=== PATIENT | male | born 1985 | race African-American/Black ===

== ENCOUNTER 2022-09-24 10:24 | Emergency (ER) | payer BC, SELFPAY ==
[2022-09-24 10:40] VITALS: BP 152/84; PULSE 90; RESP 15; TEMP 36.2; O2SAT 96; BMI 31.6
--- NOTE | 2022-09-24 14:53 | ED_ITS ---
HPI - General Adult General Chief complaint: General Medical Stated complaint: semt from urgent care Time Seen by Provider: 09/24/22 14:44 Source: patient, RN notes reviewed and old records reviewed Mode of arrival: ambulatory History of Present Illness HPI narrative: 37-year-old male with no significant past medical history presenting to the ED sent in by urgent care for diagnosis of peritonsillar abscess. Patient reports sore throat x3 days with in full/difficulty swallowing. Reports mild SOB secondary to posterior swelling noted today when lying flat. Also reports low- grade fever 99. denies SOB, CP, ear pain Onset (ago): day(s) Related Data Previous Rx's Medication Instructions Recorded acetaminophen 325 mg capsule 650 mg PO Q6H PRN fever or pain 09/24/22 (Tylenol) #20 caps amoxicillin 875 mg-potassium 1 tab PO BID 7 days #14 tabs 09/24/22 clavulanate 125 mg tablet ibuprofen 800 mg tablet 800 mg PO Q8H PRN pain #14 tabs 09/24/22 prednisone 20 mg tablet 40 mg PO DAILY 3 days #6 tabs 09/24/22 Allergies Allergy/AdvReac Type Severity Reaction Status Date / Time No Known Allergies Allergy Unverified 11/10/19 19:10 [No Known Allergies*] Review of Systems Review of Systems: Constitutional: No Fever, No Chills ENT/Mouth: No Ear Pain, No Nasal Congestion, No Sinus Pain, No Hoarseness, + sore throat, No Rhinorrhea, No Swallowing Difficulty Cardiovascular: No Chest Pain, No SOB Respiratory: No Cough, No Sputum Gastrointestinal: No Nausea, No Vomiting, No Abdominal pain Musculoskeletal: No joint pain, No Myalgias, No Joint Swelling Skin: No Skin Lesions, No rash Neuro: No Weakness Yes all other systems are reviewed and are negative Constitutional: Constitutional: Reports as per [facility] Past Medical History Attestation statement: The following information was validated with the patient. Source: old records reviewed Social History Social History Alcohol intake: never Smoked in Last 30 Days: No Use of substances other than those prescribed or required for medical reasons: No Advance Directives: No Physical Exam ED Vital Signs: Vital Signs - 24 hr 09/24/22 10:40 Temperature 97.2 F Pulse Rate 90 Respiratory Rate 15 Blood Pressure 152/84 H Pulse Oximetry 96 Oxygen Delivery Method Room Air BMI result Body Mass Index 31.6 Const General: cooperative, no acute distress, alert and awake Orientation/consciousness: patient oriented x3 Limitations: no limitations HENMT Head: Yes normal to inspection and Yes atraumatic Ears: hearing grossly normal bilaterally, external ears normal, TM's normal bilaterally and mastoids normal General nose exam: Normal external nose present Face and sinus: Yes normal facial exam Throat: Yes peritonsillar mass ( right-sided [employer] noted with right tonsillar exudates), Yes uvula laterally displaced ( to the left) and Yes uvular edema ( hydrops uvula) Eyes General: appearance normal, both eyes and all related structures EOM: EOMs intact bilaterally Neck Neck: Yes normal visual inspection and Yes no meningeal signs Resp Effort & Inspection: normal respiratory effort, able to speak in complete sentences, not labored, no pursed lip breathing, no respiratory distress, no stridor, not tachypneic and no tripod positioning Auscultation: no wheezes Cardio Rate: regular rate Skin Rashes: no rashes Wounds: no wounds Neuro General: patient oriented x3, tone normal and no meningeal signs Gait exam (Neuro): Normal gait present Extrem General: Yes normal to inspection Course Course Course Narrative: - [employer] drained at bedside with needle aspiration with Dr. San, successful with purulence pus drainage. Patient was given 1st dose of Augmentin, oral Decadron, IM Toradol in the ED. Is handling secretions. Will discharge with Augmentin and prednisone prescription with close follow-up of PCP/ENT -1630-- on re-evaluation patient reports symptomatic improvement after I&D, handling secretions. Results discussed with patient including worrisome signs and symptoms and strict return precautions, and when to return to the emergency department. They verbalized understanding and feel safe for discharge at this time. Medications Administered Discontinued Medications Generic Name Dose Route Start Last Admin Trade Name Lucasq PRN Reason Stop Dose Admin Amoxicillin/Clavulanate Potassium 875 mg 09/24/22 16:01 09/24/22 16:07 Amoxicillin/Potassium Clav 875 Mg Tablet PO 09/24/22 16:02 875 mg ONCE ONE Administration Dexamethasone Sodium Phosphate 10 mg 09/24/22 15:08 09/24/22 15:20 Dexamethasone Sod Phosphate 10 Mg/Ml Vial IVPUSH 09/24/22 15:09 10 mg ONCE ONE Administration Ketorolac Tromethamine 30 mg 09/24/22 15:08 09/24/22 15:20 Ketorolac Tromethamine 30 Mg/Ml Vial IM 09/24/22 15:09 30 mg ONCE ONE Administration Lidocaine HCl 5 ml 09/24/22 15:00 09/24/22 15:24 Lidocaine Hcl 1 % Mpf 5 Ml Vial INFILTRATI 09/24/22 15:01 5 ml ONCE ONE Administration Lidocaine HCl 1 appl 09/24/22 15:00 09/24/22 15:31 Lidocaine Hcl 4 % [id number] 4 Ml TOPICAL 09/24/22 15:01 Not Given ONCE ONE Lidocaine HCl 5 ml 09/24/22 15:25 09/24/22 15:31 Lidocaine Hcl 1 % Mpf 5 Ml Vial INFILTRATI 09/24/22 15:26 5 ml ONCE ONE Administration Procedures Abscess I/D Site: oral Side (if applicable): right Local Anesthetic: lidocaine 1% ( atomized 3ml and injected 2ml) Technique: needle aspiration Amount of fluid expressed (mL): 2 Sent for culture/gram staining?: No Irrigation: No Packing used?: none Medical Decision Making Medical Decision Making MDM Narrative: 37-year-old male with no significant past medical history presenting to the ED sent in by urgent care for diagnosis of peritonsillar abscess. on exam vital signs stable, afebrile, nontoxic-appearing, handling secretions, no drooling, talking in complete sentences, no stridor, no external swelling appreciated. Right peritonsillar abscess noted with right-sided tonsillar exudate in deviated uvula to the left. Hydrops uvula. Concern for peritonsillar abscess. Low suspicion for retropharyngeal abscess. Patient with negative rapid strep [employer], however will repeat. Lower suspicion for mononucleosis or Brayan's angina plan: Rapid strep, p.o. Decadron, Toradol, I&D Please refer to course for remaining clinical decision making, interpretation of labs/imaging results, and discussions with consultants and/or family members. Differential Diagnosis Differential Diagnoses: The differential diagnosis associated with the presentation includes As above Admission/Observation Consideration of admission/observation: Escalation of care including admission/observation considered Lab Data Labs: Lab Results 09/24/22 Range/Units 16:11 S. pyogenes GrpA HENRIK Negative (Negative) External Record Review External record reviewed: Inpatient record, Office record, Outpatient record, Prior outpatient labs, Prior outpatient radiology, Primary care record and Outside ED record Tests considered The following testing was considered but not selected: CT, labs Prescription Management I considered prescription management with: Pain Medication and Antibiotic Discharge Plan Discharge Clinical Impression: Peritonsillar abscess Patient Disposition: Home, Self-Care Instructions: Peritonsillar Abscess (DC) Additional Instructions: your peritonsillar abscess was drained today in the emergency department Augmentin is antibiotic please take as prescribed In addition take prednisone which is a steroid which will help with swelling He should also be taking ibuprofen and Tylenol for pain/ swelling Follow-up with your doctor in 2 days for re-evaluation Please follow-up with the ENT specialist If swelling persists, worsens, have difficulty or inability to swallow, or difficulty breathing return to the ED IMMEDIATELY Prescriptions: New amoxicillin-pot clavulanate 875-125 mg tablet 1 tab PO BID 7 Days Qty: 14 0RF prednisone 20 mg tablet 40 mg PO DAILY 3 Days Qty: 6 0RF ibuprofen 800 mg tablet 800 mg PO Q8H PRN (Reason: pain) Qty: 14 0RF acetaminophen [Tylenol] 325 mg capsule 650 mg PO Q6H PRN (Reason: fever or pain) Qty: 20 0RF Referrals: Mine Wheeler DO [Primary Care Provider] - 2 days ( for re-evaluation) Thomas Lamas [Physician] -
[2022-09-24] MEDS: Ketorolac Tromethamine 30 MG/ML VIAL IM (15:20)
[2022-09-24] MEDS: dexAMETHasone sod phosphate 10 MG/ML VIAL IVPUSH (15:20)
[2022-09-24] MEDS: Lidocaine HCl 1 % MPF 5 ML VIAL INFILTRATI ×2 (15:24→15:31)
[2022-09-24] MEDS: Amoxicillin/Potassium Clav 875 MG TABLET PO (16:07)
[2022-09-24 16:29] LABS: IDNOW Serial# BCCEAD1C; Strep A Nucleic Acid Negative (Negative)
[2022-09-24 16:45] VITALS: BP 138/76; PULSE 81; RESP 16; TEMP 37.3; O2SAT 96
== END 2022-09-24 16:45 | disposition home or self-care (01) ==
PROVIDERS: Physician Assistant; Emergency Provider Emergency Medicine Emergency Medical Services; PCP Pediatrics
DX: J36 Peritonsillar abscess (principal); Z79.899 Other long term (current) drug therapy
CPT/HCPCS: 42700; 87651; 96372; 99284; J1100; J1885